=== PATIENT | male | born 1955 | race Caucasian/White ===

== ENCOUNTER 2019-01-26 04:36 | Emergency (ER) | payer MEDICARE, OTHER ==
[~2019-01-26] VITALS: Ht 180.3 cm; Wt 86.4 kg
[2019-01-26 04:37] VITALS: BP 140/84
[2019-01-26] MEDS ORDERED: valACYclovir HCL 500 MG TAB PO ONE (05:45)
[2019-01-26] MEDS ORDERED: VALT1TAB PO (05:53)
== END 2019-01-26 06:10 | disposition home or self-care (01) ==
LOC: M ED 04:36
DX: B02.9 Zoster without complications (principal)